=== PATIENT | male | born 1965 | race Caucasian/White ===

== ENCOUNTER 2022-09-19 07:50 | Outpatient (AMB) | payer OTHER, SELFPAY ==
--- NOTE | 2022-09-19 07:55 | MHC.OFFVIS ---
Intake Vital Signs 09/19/22 08:01 Height 5 ft 10 in Weight 227 lb BMI 32.6 BP 112/78 Blood Pressure Location Lt brachial Position Sitting Pulse 73 Pulse Source Pulse Oximeter Pulse Oximetry (%) 97 Oxygen Delivery Method Room Air Intake Visit Reasons: E-EQUAL OPPORTUNITY SPECIALIST: Chronic Insomnia Intake Note: NPV for cronic Insomnia, states has multiple sleep studies which he never sleeps through, allways wakes up too early and study is discontinued. [employer] Required: No Allergies No Known Allergies Allergy (Verified 09/19/22 07:58) HPI HPI Comments History of Present Illness Details 57 y/o male patient presents for new in-person visit for sleep consultation. Pt reports chronic insomnia. He states that he never be a good sleeper, and his insomnia and daytime fatigue has been worsened over the last 10 years. He had sleep study several times, but all of the sleep studies were inconclusive. He states that he tried 20 different medications to promote sleep, but they were not really helpful. He tried melatonin, lunesta, trazodone, doxepin, ambien, clonazepam, ativan, mirtazapine, gabapentin, but can't remember all medications he tried. Pt reports that he has high medication tolerance. He is on temazepam 30 mg qHS, it helps him fall asleep, but he still has difficulty staying sleep. He wakes up 1-2 at least, and has difficulty go back to sleep. Sleep questionnaire: Have you ever been diagnosed with a sleep disorder? Yes, insomnia. Have you ever had a sleep study in the past? Yes, several sleep studies done, but they were all inconclusive. Have you ever been treated for a sleep disorder? Yes. Do you take medications for a sleep disorder? Temazepam 30 mg. Do you snore? Yes. Do you wake up gasping at night? No. Do you have episodes of apneas? No. If yes, are they witnessed? No, sleeps alone. Do you have episodes of nocturnal chest pain or dyspnea? No. Do you have difficulty initiating sleep? No. Do you have difficulty maintaining sleep? Yes. Do you wake up tired? Yes. Do you have headaches upon awakening? No. Do you wake up with dry mouth or throat? Yes. Do you have GERD? No. Do you have nocturia? once or twice. Do you have nocturnal leg cramps? No. Do you have symptoms of restless legs? Yes. Do you act out your dreams? No. Sleep hygiene questionnaire: What is your usual sleep routine? Usual bedtime is at before 12 am; Usual wake up time is at 7-7:30 am. Do you take naps? No. Is your sleep environment cool, dark, and quiet? Yes. Do you exercise? Walk a lot. Do you take caffeine or other stimulants? Yes, soda. Do you use electronics in bed? Yes. What is your work schedule? No. Hypersomnolence questionnaire: Do you have daytime tiredness or fatigue? Yes. Do you easily fall asleep when inactive? No. Have you ever had episodes of sudden weakness? No. Have you ever had episodes of sudden weakness associated with strong emotions? No. PFSH Surgical History (Updated 09/19/22 @ 08:00 by Salma Saravia CMA) H/O knee surgery Social History (Updated 09/19/22 @ 08:01 by Salma Saravia CMA) Alcohol intake: current Alcohol intake frequency: holidays/special occasions only Patient Tobacco Use Status: Never used Tobacco Review of Systems Const All systems reviewed & are unremarkable except as noted in HPI and below ENT Reports Normal hearing present Neuro Reports Normal hearing present Physical Exam Vital Signs: Last Vital Signs Pulse 73 09/19/22 08:01 BP 112/78 09/19/22 08:01 Pulse Ox 97 09/19/22 08:01 Oxygen Delivery Method Room Air 09/19/22 08:01 BMI result Body Mass Index 32.6 Const General: cooperative Nutritional Appearance: obese Orientation/consciousness: patient oriented x3 Neck Neck: Yes full ROM and Yes supple Resp Effort & Inspection: normal respiratory effort and able to speak in complete sentences Neuro General: patient oriented x3, gait normal and moves all extremities Cranial nerves: Yes Bilaterally intact EOM present, Yes Normal facial strength present, Yes Midline tongue present, Yes Symmetric palate elevation present, Yes Normal hearing present, Yes Ability to bilaterally rotate head present and Yes Ability to bilaterally elevate shoulders present Cognition (Neuro): normal cognition Gait exam (Neuro): Normal gait present Motor exam (neuro): 5/5 motor strength present throughout, Pronator motor function not present and no tremor noted Psych Appearance: grossly normal Mental Status: mental status grossly normal Speech and movement: Normal speech and movement present Affect: normal affect Attitude: cooperative Assessment & Plan Assessment & Plan (1) Insomnia: Code(s): G47.00 - Insomnia, unspecified Plan Advised patient to try magnesium 400 mg with remelteon 8 mg qHS. Continue to take temazepam 30 mg qHS. Advised patient to try CBTi, encouraged patient to read Say Good Night to Insomnia and practice the 6 weeks sleep hygiene program. Advised limit soda intake in the afternoon and electronic use before bedtime. Pt refused to have sleep study. Medications: New magnesium oxide 400 mg PO BEDTIME 30 days 30 caps 1RF ramelteon 8 mg PO BEDTIME 30 days 30 tabs 2RF Coding Level of Care Code New Pt Level 4 (61134) Diagnoses Insomnia G47.00
[2022-09-19 08:01] VITALS: BP 112/78; PULSE 73; O2SAT 97; BMI 32.6
== END 2022-09-19 08:42 | disposition home or self-care (01) ==
PROVIDERS: PCP Internal Medicine; Visit Provider Nurse Practitioner Family
DX: G47.00 Insomnia, unspecified (principal)
CPT/HCPCS: 99204

== ENCOUNTER → 2022-09-19 07:50 | Outpatient (BNVA) | payer OTHER, SELFPAY | PROVIDERS: PCP Internal Medicine; Visit Provider Nurse Practitioner Family | DX: G47.00 Insomnia, unspecified (principal) | CPT/HCPCS: 99202 ==